=== PATIENT | female | born 1945 | race Caucasian/White ===

== ENCOUNTER → 2020-08-21 | Outpatient (CLI) | payer MEDICARE ==
[~2020-08-21] MED LIST: ACET-2247 PO; ASPI-1012 PO; BISO1TAB8 PO; DULO60CA64 PO; HYDR-2132 PO; MELO-108 PO
== END | disposition home or self-care (01) ==
LOC: RAH 11:15
PROVIDERS: ATTEND Urology
DX: N28.1 Cyst of kidney, acquired (principal); N23 Unspecified renal colic
CPT/HCPCS: 76770